=== PATIENT | female | born 1970 | race Caucasian/White ===

== ENCOUNTER 2017-06-11 10:46 | Day surgery (SDC) | payer BC, MEDICARE ==
--- NOTE | 2017-06-11 06:54 | History and Physical Report ---
DATE: 06/10/2017. CHIEF COMPLAINT AND HISTORY OF CHIEF COMPLAINT: This is a patient with a history of an intractable radiculitis. She had a spinal cord stimulator implanted elsewhere with a generator at the left posterior gluteal margin. Generator depletion has affected the functionality of the system. The patient was referred to us for battery change. PAST MEDICAL HISTORY: Asthmatic bronchitis, peripheral neuropathy, hypertension , chronic obstructive pulmonary disease, headaches, reflux, depression, difficulty sleeping. SOCIAL HISTORY: Caffeine, cigarette smoking. FAMILY HISTORY: Asthma, diabetes, hypertension. PAST SURGICAL HISTORY: Extensive. MEDICATIONS ON ADMISSION: To be provided. ALLERGIES: To be provided. PHYSICAL EXAMINATION: General: Height is 5 feet, 6 inches. Weight is 200 pounds. Vital Signs: Not available. HEENT: Within normal limits. Lungs: Clear. Heart: Regular rate and rhythm. Abdomen: Nontender. Musculoskeletal: Examination of the musculoskeletal system shows the generator pouch at the left posterior gluteal margin. The site appears to be intact. There is no breakdown or erythematous change. Neurologic: Cranial nerves are intact. IMPRESSION: 1. INTRACTABLE HEADACHES WITH PERIPHERAL NERVE STIMULATOR FOR PAIN CONTROL. 2. PERIPHERAL NERVE STIMULATOR WITH BATTERY DEPLETION. PLAN: The patient has a very complicated medical and surgical history. Although she was requesting lead revision, we have agreed only to replace the battery. The procedure will be considered outpatient. The potential risks, side effects, and complications have all been carefully reviewed and discussed. JOB NUMBER: [id number] cc: Primary Doctor JOSSY
[~2017-06-11 10:46] MED LIST: ACETAMINOPHEN 1,000 MG/100 ML BTL IV ONE; DAPTOMYCIN 500 MG/VIAL IV ONE; METOCLOPRAMIDE 10 MG TABLET PO ONE
[2017-06-11] MEDS ORDERED: MIDAZOLAM HCL 2MG/2ML VIAL IV ONE (10:47)
[2017-06-11] MEDS ORDERED: BUPIVACAINE 0.75% W/EPI MPF 30ML VIAL IVP ONE (10:47)
[2017-06-11] MEDS ORDERED: FAMOTIDINE 20MG TABLET PO ONE (10:47)
[2017-06-11] MEDS ORDERED: PROPOFOL 10 MG/ML VIAL IV ONE (10:47)
[2017-06-11] MEDS ORDERED: *PACU ONLY* KETAMINE HCL 10 MG/ML (20ML) VIAL IV ONE (10:47)
[2017-06-11] MEDS ORDERED: LIDOCAINE 1% W/EPI 1:200,000 MPF 30ML SQ ONE (10:47)
[2017-06-11] MEDS ORDERED: LIDOCAINE 2% MDV (20MG/ML) 20ML VIAL IV ONE (10:47)
[2017-06-11] MEDS ORDERED: CLINDAMYCIN (PEDIATRIC DOSING) 150 MG/ML VIAL IVPB ONE (10:47)
--- NOTE | 2017-06-18 05:41 | Operative Note - Ferro ---
DATE OF SURGERY: 06/11/2017. PREOPERATIVE DIAGNOSIS: 1. CERVICAL RADICULITIS. 2. SPINAL CORD STIMULATOR INTERNAL GENERATOR BATTERY DEPLETION, ICD-10 CODE M54.13. POSTOPERATIVE DIAGNOSIS: 1. CERVICAL RADICULITIS. 2. SPINAL CORD STIMULATOR INTERNAL GENERATOR BATTERY DEPLETION, ICD-10 CODE M54.13. OPERATION: Fluoroscopically guided incision, subcutaneous dissection, and removal and replacement of an internal pulse generator for spinal cord stimulator. SURGEON: Ruddy Peralta D.O. ANESTHESIA: Local sedation. ANESTHESIA PROVIDER: Lv Morales CRNA. INDICATION: This patient presents with a history of an intractable cervical radiculitis managed by spinal cord stimulator with an internal generator. These systems were performed and placed outside of this area. She was referred to our facility for battery replacement and possible lead replacement. After carefully reviewing the history, it was decided that only the battery would be approached at this time. PROCEDURE: Intravenous line, vital sign monitoring, and intravenous sedation. The patient was positioned prone. Sterile prep and sterile technique. The generator pouch at the left posterior gluteal margin was infiltrated with local. An incision was made, and subcutaneous dissection was conducted under imaging maintaining sterility and using local anesthetic. Once the generator pouch was identified, it was opened and the generator was exteriorized and from the internal connections. A new [employer] generator was then placed onto the field and interfaced with the current indwelling leads. Antibiotic irrigation and Bovie for hemostasis. The generator was then placed into the pouch and secured to the fascia with nonabsorbable suture. The incision was closed with Vicryl for the fascia and running subcuticular Vicryl for the skin. Dermabond closure. She was transported to the recovery room stable, showing no side effects from the procedure or the sedation. DISCHARGE INSTRUCTIONS: 1. The site is to remain clean and dry. No showering or bathing in any way that would disrupt dressings. Although the Dermabond will allow showering. 2. Standard medications to be resumed including Levaquin the antibiotic 500 mg once a day for 14 days. If she has problems with this and does not tolerate it , she is to contact the clinic for a substitution. 3. [place]dwell 7.5/325, maximum five per day, has been provided for a ten-day prescription to allow for incision pain control. All other medications are to be handled through her primary care physician. 4. All other instructions were provided. 5. She will be discharged to home and the office will call her for an office visit in 5 to 7 days for an office visit to evaluate the site in 10 to 14 days. JOB NUMBER: [id number] MTDD
== END 2017-06-11 16:20 | disposition home or self-care (01) ==
LOC: SUR 10:46
PROVIDERS: ATTEND Pain Medicine Interventional Pain Medicine
DX: T85.890A Other specified complication of nervous system prosthetic devices, implants and grafts, initial encounter (principal); M54.13 Radiculopathy, cervicothoracic region; E11.9 Type 2 diabetes mellitus without complications; J44.9 Chronic obstructive pulmonary disease, unspecified; I10 Essential (primary) hypertension; Z79.84 Long term (current) use of oral hypoglycemic drugs; Z79.4 Long term (current) use of insulin; Z72.0 Tobacco use; E78.00 Pure hypercholesterolemia, unspecified; J45.909 Unspecified asthma, uncomplicated
CPT/HCPCS: 63685; 00300; 95972; J0878; J3490